=== PATIENT | female | born 1955 | race Native Hawaiian/Other Pacific Islander ===

== ENCOUNTER 2016-08-29 08:17 | Outpatient (CLI) | payer BC | END 2016-08-29 09:30 | disposition home or self-care (01) | LOC: MAMMO 08:17 | DX: Z12.31 Encounter for screening mammogram for malignant neoplasm of breast (principal) | CPT/HCPCS: G0202-TC ==

== ENCOUNTER 2019-09-16 16:07 | Emergency (ER) | payer BC ==
[~2019-09-16] VITALS: Ht 162.6 cm; Wt 70.8 kg
[2019-09-16 16:25] VITALS: TEMP 98.5
[2019-09-16 17:42] VITALS: BP 136/70
== END 2019-09-16 17:42 | disposition home or self-care (01) ==
LOC: ED 16:07
DX: T78.3XXA Angioneurotic edema, initial encounter (principal)
CPT/HCPCS: 94664; 96374; 96375; 99284; J1200; J2930

== ENCOUNTER 2019-11-22 14:22 | Outpatient (CLI) | payer BC | END 2019-11-22 23:05 | disposition home or self-care (01) | LOC: RAD 14:22 | DX: M25.571 Pain in right ankle and joints of right foot (principal) ==

== ENCOUNTER 2021-02-24 18:26 | Emergency (ER) | payer BC ==
[~2021-02-24] VITALS: Ht 162.6 cm; Wt 73.9 kg
[2021-02-24 21:08] VITALS: BP 143/53; TEMP 97.5
== END 2021-02-24 21:08 | disposition home or self-care (01) ==
LOC: ED 18:26
DX: R10.84 Generalized abdominal pain (principal); T78.3XXA Angioneurotic edema, initial encounter; X58.XXXA Exposure to other specified factors, initial encounter; Y92.89 Other specified places as the place of occurrence of the external cause
CPT/HCPCS: 96372; 99283; J1100; J2405; J2930

== ENCOUNTER 2021-02-25 00:13 | Emergency (ER) | payer BC ==
[~2021-02-25] VITALS: Ht 162.6 cm; Wt 73.9 kg
[2021-02-25 00:45] LABS: PLATELET COUNT 232 K/uL (152-353)
[2021-02-25 00:50] LABS: POTASSIUM 4.1 mmol/L (3.6-5.2)
[2021-02-25 06:10] VITALS: TEMP 98.9
[2021-02-25 08:47] VITALS: BP 98/50
== END 2021-02-25 08:49 | disposition short-term general hospital (02) ==
LOC: ED 00:13
PROVIDERS: Emergency Medicine
DX: D84.1 Defects in the complement system (principal); R10.84 Generalized abdominal pain; K29.80 Duodenitis without bleeding; Z11.52 Encounter for screening for COVID-19
CPT/HCPCS: 36415; 80053; 80307; 81000; 82150; 83690; 85027; 87635; 96360; 96361; 96365; 96375; 96376; 99284; J0696; J1170; J2550; J3490; Q9963; U0003

== ENCOUNTER 2021-07-04 13:37 | Outpatient (CLI) | payer BC | END 2021-07-04 21:36 | disposition home or self-care (01) | LOC: MAMMO 13:37 | PROVIDERS: ATTEND Registered Nurse | DX: Z12.31 Encounter for screening mammogram for malignant neoplasm of breast (principal) ==

== ENCOUNTER → 2022-07-08 | Outpatient (CLI) | payer BC | LOC: MAMMO 10:13 | PROVIDERS: ATTEND Nurse Practitioner Family | DX: Z12.31 Encounter for screening mammogram for malignant neoplasm of breast (principal) ==